=== PATIENT | female | born 1955 | race American Indian/Alaskan Native ===

== ENCOUNTER 2016-10-04 16:57 | Emergency (ER) | payer OTHER ==
[2016-10-04 17:02] VITALS: RESP 20; O2SAT 100
--- NOTE | 2016-10-04 19:10 | C.PDOC ---
History Of Present Illness <LloydosmaniAnat - Last Filed: 10/04/16 19:41> <Alexandra Guo - Last Filed: 10/04/16 21:37> Patient is a 61 y/o female, whose PMHx includes HTN, and pre-diabetes, that presents to the ED for evaluation of near syncopal episode at work today. Pt reports feeling dizzy, and lightheaded. Otherwise, denies any headache, weakness , numbness, chest pain, fever, or any other associated symptoms at this time. (Anat Hui) History Per: Patient History/Exam Limitations: no limitations Onset/Duration Of Symptoms: Hrs Current Symptoms Are (Timing): Still Present Severity: None Pain Scale Rating Of: 0 Recent travel outside of the [place]: No Additional History Per: Patient <EzAnat - Last Filed: 10/04/16 19:41> <Alexandra Guo - Last Filed: 10/04/16 21:37> Time Seen by Provider: 10/04/16 17:55 Chief Complaint (Nursing): Dizziness/Lightheaded Past Medical History Reviewed: Historical Data, Nursing Documentation, Vital Signs - Medical History PMH: Asthma, HTN, Hypercholesterolemia, Pulmonary Embolism, Sleep Apnea Denies: Chronic Kidney Disease Family History: States: Unknown Family Hx - Social History Hx Alcohol Use: No Hx Substance Use: No - Immunization History Hx Tetanus Toxoid Vaccination: No Hx Influenza Vaccination: No Hx Pneumococcal Vaccination: No <EzAnat - Last Filed: 10/04/16 19:41> Review Of Systems Except As Marked, All Systems Reviewed And Found Negative. Constitutional: Negative for: Fever, Chills Cardiovascular: Positive for: Light Headedness. Negative for: Chest Pain, Palpitations Respiratory: Negative for: Shortness of Breath Gastrointestinal: Negative for: Nausea, Vomiting Neurological: Positive for: Dizziness. Negative for: Weakness, Numbness, Headache <Anat Hui - Last Filed: 10/04/16 19:41> Physical Exam - Physical Exam Appears: Non-toxic, No Acute Distress, Other (morbidly obese) Skin: Normal Color, Warm, Dry Head: Atraumatic, Normacephalic Eye(s): bilateral: Normal Inspection, EOMI Neck: Normal ROM, Supple Chest: Symmetrical, No Tenderness Cardiovascular: Rhythm Regular, No Murmur Respiratory: Normal Breath Sounds, No Rales, No Rhonchi, No Wheezing Gastrointestinal/Abdominal: Soft, No Tenderness Extremity: Normal ROM, No Deformity Neurological/Psych: Oriented x3, Normal Speech, Normal Cognition <Anat Hui - Last Filed: 10/04/16 19:41> ED Course And Treatment - Laboratory Results Result Diagrams: 10/04/16 19:12 10/04/16 19:12 ECG: Interpreted By Me ECG Interpretation: No Acute Changes Rate From EC O2 Sat by Pulse Oximetry: 100 (on RA) Pulse Ox Interpretation: Normal Progress Note: Labs, CXR, EKG, head CT ordered and reviewed. Case was signed out to . <Anat Hui - Last Filed: 10/04/16 19:41> - Laboratory Results Result Diagrams: 10/04/16 19:12 10/04/16 19:12 <Alexandra Guo - Last Filed: 10/04/16 21:37> Disposition - Disposition Disposition Time: 19:38 <Anat Hui - Last Filed: 10/04/16 19:41> Counseled Patient/Family Regarding: Studies Performed, Diagnosis, Need For Followup - Disposition Disposition Time: 21:35 <Alexandra Guo - Last Filed: 10/04/16 21:37> - Disposition Disposition: HOME/ ROUTINE Condition: GOOD Additional Instructions: Follow up with your doctor. Any other concerns, return to the Emergency Department. Instructions: Dizziness (ED) Forms: General Discharge Instructions, Work Excuse - Clinical Impression Clinical Impression: Dizziness Physician Patient Turnover Patient Signed Over To: Alexandra Guo Handoff Comments: Labs and CT head are pending <Anat Hui - Last Filed: 10/04/16 19:41> Addendum <Anat Hui - Last Filed: 10/04/16 19:41> <Alexandra Guo - Last Filed: 10/04/16 21:37> Addendum: 10/04/16 21:32 61 y/o female endorsed to me by JAMAAL Hui and Dr. Saleh at the end of their shift. Patient states she was at work and was feeling " funny in the head". No LOC, no chest pain. Patient awake, alert, tolerating PO, states she feels well now. Obese Chest clear Abdomen soft CT head was done, normal CT Labs unremarcable. Patient with leukocytes in the urine, but no urinary complaints. Patient will be discharged with her results to follow up with PMD. (Alexandra Guo)
[2016-10-04 19:21] LABS: BASO # 0.1 K/uL (0.0-0.2); BASO % 1.2 % (0.0-2.0); EOS # 0.3 K/uL (0.0-0.7); EOS % 6.1 % (0.0-4.0); HEMOGLOBIN 12.1 g/dL (11.0-16.0); LYMPH # 1.9 K/uL (1.0-4.3); LYMPH % 39.2 % (20.0-40.0); MEAN CELL VOLUME 87.8 fL (81.0-99.0); MEAN CORPUSCULAR HGB CONC 31.9 g/dL (33.0-37.0); MEAN PLATELET VOLUME 10.2 fL (7.2-11.7); MONO # 0.4 K/uL (0.0-0.8); MONO % 8.6 % (0.0-10.0); NEUT # 2.2 K/uL (1.8-7.0); NEUT % 44.9 % (50.0-75.0); NRBC % 0.1 % (0.0-2.0); RBC 4.32 Mil/uL (3.80-5.20); RED CELL DISTRIBUTION WIDTH 15.2 % (11.5-14.5); WHITE BLOOD COUNT 4.9 K/uL (4.8-10.8)
[2016-10-04 19:30] LABS: INR 1.2; PROTHROMBIN TIME 13.3 SECONDS (9.7-12.2)
[2016-10-04 19:31] LABS: ALBUMIN 4.5 g/dL (3.5-5.0)
[2016-10-04 19:32] LABS: SQUAMOUS EPITHIAL 18 /hpf (0-5); URINE BACTERIA OCC (<OCC); URINE BILIRUBIN NEGATIVE (NEGATIVE); URINE BLOOD NEGATIVE (NEGATIVE); URINE CLARITY Hazy (Clear); URINE COLOR Yellow (YELLOW); URINE GLUCOSE (UA) NORMAL (Normal); URINE LEUKOCYTE ESTERASE 2+ Leu/uL (Negative); URINE NITRATE NEGATIVE (NEGATIVE); URINE PROTEIN NEGATIVE (NEGATIVE); URINE UROBILINOGEN NORMAL mg/dL (0.2-1.0)
[2016-10-04 19:34] LABS: GFR AFRICAN-AMERICAN > 60; GFR NON-AFRICAN AMERICAN > 60
[2016-10-04 19:35] LABS: ALB/GLOB RATIO 1.1 (1.0-2.1); ALT/SGPT 29 U/L (9-52); AST/SGOT 46 U/L (14-36); BLOOD UREA NITROGEN 20 mg/dL (7-17); CALCIUM 10.4 mg/dl (8.6-10.4)
--- NOTE | 2016-10-04 19:36 | C.PDOC ---
Time Seen by Provider: 10/04/16 17:55 Chief Complaint (Nursing): Dizziness/Lightheaded Past Medical History Vital Signs: Last Vital Signs Temp 97.3 F L 10/04/16 17:01 Pulse 80 10/04/16 17:01 Resp 20 10/04/16 17:01 BP 149/77 10/04/16 17:01 Pulse Ox 100 10/04/16 17:01 - Medical History PMH: Asthma, HTN, Hypercholesterolemia, Pulmonary Embolism, Sleep Apnea Denies: Chronic Kidney Disease Family History: States: Unknown Family Hx - Social History Hx Alcohol Use: No Hx Substance Use: No - Immunization History Hx Tetanus Toxoid Vaccination: No Hx Influenza Vaccination: No Hx Pneumococcal Vaccination: No ED Course And Treatment O2 Sat by Pulse Oximetry: 100 Progress Note: Case was signed out to at 7:35 pm. Disposition - Disposition Disposition Time: 19:38 Condition: FAIR - Clinical Impression Clinical Impression: Dizziness Physician Patient Turnover Patient Signed Over To: Alexandra Guo Handoff Comments: labs and CT head are pending
[2016-10-04 21:50] VITALS: BP 122/83; PULSE 60; TEMP 97.6
--- NOTE | 2016-10-05 08:06 | CT ---
PROCEDURE: CT HEAD WITHOUT CONTRAST. HISTORY: Dizziness COMPARISON: None available. TECHNIQUE: Axial computed tomography images were obtained through the head/brain without intravenous contrast. Radiation dose: Total exam DLP = 942 mGy-cm. This CT exam was performed using one or more of the following dose reduction techniques: Automated exposure control, adjustment of the mA and/or kV according to patient size, and/or use of iterative reconstruction technique. FINDINGS: HEMORRHAGE: No intracranial hemorrhage. BRAIN: No mass effect or edema. No atrophy or chronic microvascular ischemic changes. VENTRICLES: Unremarkable. No hydrocephalus. CALVARIUM: Unremarkable. PARANASAL SINUSES: Unremarkable as visualized. No significant inflammatory changes. MASTOID AIR CELLS: Unremarkable as visualized. No inflammatory changes. OTHER FINDINGS: Small bony exostosis emanating from the right frontal cranium. IMPRESSION: No acute intracranial abnormality. If focal neurologic deficit persists, consider MRI. These findings were preliminarily reported at 8:33 p.m. on 10/04/[address] Jason Peck from [facility].
--- NOTE | 2016-10-05 09:02 | RAD ---
PROCEDURE: CHEST RADIOGRAPH, 1 VIEW HISTORY: dizzy COMPARISON: 02/14/2015. FINDINGS: LUNGS: Clear. PLEURA: No pneumothorax or pleural fluid seen. CARDIOVASCULAR: No radiographic findings to suggest acute or significant cardiovascular disease. OSSEOUS STRUCTURES: No significant abnormalities. VISUALIZED UPPER ABDOMEN: Normal. OTHER FINDINGS: None. IMPRESSION: No active disease. No acute/significant interval changes.
--- NOTE | 2016-10-05 17:05 | CARD ---
APPROVED REPORT EKG Measurement Heart [id number] <Conclusion> Normal sinus rhythm Normal ECG
== END 2016-10-04 21:50 | disposition home or self-care (01) ==
LOC: C.ER 16:57
DX: R42 Dizziness and giddiness (principal)

== ENCOUNTER 2016-11-01 07:07 | Emergency (ER) | payer OTHER ==
[2016-11-01] MEDS ORDERED: Sodium Chloride 0.9% 1,000 ML IV ONE (07:31)
[2016-11-01 07:58] LABS: BASO # 0.1 K/uL (0.0-0.2); BASO % 1.4 % (0.0-2.0); EOS # 0.3 K/uL (0.0-0.7); HEMOGLOBIN 11.9 g/dL (11.0-16.0); LYMPH % 27.3 % (20.0-40.0); MEAN CELL VOLUME 87.4 fL (81.0-99.0); MEAN CORPUSCULAR HEMOGLOBIN 28.6 pg (27.0-31.0); MEAN CORPUSCULAR HGB CONC 32.7 g/dL (33.0-37.0); MEAN PLATELET VOLUME 10.2 fL (7.2-11.7); MONO # 0.3 K/uL (0.0-0.8); MONO % 9.5 % (0.0-10.0); NEUT % 53.8 % (50.0-75.0); NRBC % 0.1 % (0.0-2.0); RBC 4.15 Mil/uL (3.80-5.20); RED CELL DISTRIBUTION WIDTH 14.9 % (11.5-14.5); WHITE BLOOD COUNT 3.7 K/uL (4.8-10.8)
[2016-11-01] MEDS ORDERED: Sodium Chloride 0.9% 1,000 ML ONE (08:06)
[2016-11-01 08:16] LABS: ALB/GLOB RATIO 1.4 (1.0-2.1); ALBUMIN 4.3 g/dL (3.5-5.0); ALT/SGPT 29 U/L (9-52); AST/SGOT 34 U/L (14-36); BLOOD UREA NITROGEN 24 mg/dL (7-17); CALCIUM 9.9 mg/dl (8.6-10.4); GFR AFRICAN-AMERICAN > 60; GFR NON-AFRICAN AMERICAN > 60; LIPASE 52 U/L (23-300)
[2016-11-01 08:23] LABS: SQUAMOUS EPITHIAL 5 /hpf (0-5); URINE BACTERIA OCC (<OCC); URINE BILIRUBIN NEGATIVE (NEGATIVE); URINE BLOOD NEGATIVE (NEGATIVE); URINE CLARITY Hazy (Clear); URINE COLOR Yellow (YELLOW); URINE GLUCOSE (UA) NORMAL (Normal); URINE HYALINE CAST 0-2 /lpf (0-2); URINE LEUKOCYTE ESTERASE TRACE Leu/uL (Negative); URINE NITRATE NEGATIVE (NEGATIVE); URINE PROTEIN NEGATIVE (NEGATIVE); URINE UROBILINOGEN NORMAL mg/dL (0.2-1.0)
[2016-11-01] MEDS ORDERED: Iodixanol 320 MG/ML 100 ML BOTTLE IV ONE (09:03)
--- NOTE | 2016-11-01 09:50 | C.PDOC ---
History Of Present Illness 61 y/o female presents to the ED for evaluation of right sided back pain upon waking up this morning. Notes that pain is worse with movement. States that pain radiates to the right side of abdomen. Reports having history of similar episodes in the past. Otherwise, denies any trauma, injury, change in sensation , n/v/d, urinary symptoms, incontinence, or fever. Time Seen by Provider: 11/01/16 07:22 Chief Complaint (Nursing): Back Pain History Per: Patient History/Exam Limitations: no limitations Onset/Duration Of Symptoms: Hrs Current Symptoms Are (Timing): Still Present Quality Of Discomfort: "Pain" Previous Symptoms: None. denies: Prior Injury Associated Symptoms: None. denies: Incontinence, New Weakness, New Numbness Exacerbating Factor(s): Movement Recent travel outside of the [place]: No Additional History Per: Patient Past Medical History Reviewed: Historical Data, Nursing Documentation, Vital Signs Vital Signs: Last Vital Signs Temp 98.7 F 11/01/16 11:57 Pulse 78 11/01/16 11:57 Resp 19 11/01/16 11:57 BP 130/83 11/01/16 11:57 Pulse Ox 98 11/01/16 17:00 - Medical History PMH: Asthma, HTN, Hypercholesterolemia, Pulmonary Embolism, Sleep Apnea Denies: Chronic Kidney Disease Family History: States: Unknown Family Hx - Social History Hx Alcohol Use: No Hx Substance Use: No - Immunization History Hx Tetanus Toxoid Vaccination: No Hx Influenza Vaccination: No Hx Pneumococcal Vaccination: No Review Of Systems Except As Marked, All Systems Reviewed And Found Negative. Constitutional: Negative for: Fever, Chills Cardiovascular: Negative for: Chest Pain, Palpitations Respiratory: Negative for: Shortness of Breath Gastrointestinal: Negative for: Nausea, Vomiting, Diarrhea Genitourinary: Negative for: Dysuria, Frequency, Incontinence, Hematuria Musculoskeletal: Positive for: Back Pain Skin: Negative for: Rash, Bruising Neurological: Negative for: Weakness, Numbness Physical Exam - Physical Exam Appears: Non-toxic, No Acute Distress, Other (morbidly obese) Skin: Normal Color, Warm, Dry Head: Atraumatic, Normacephalic Eye(s): bilateral: Normal Inspection, EOMI Nose: Normal Oral Mucosa: Moist Neck: Normal ROM, Supple Chest: Symmetrical Cardiovascular: Rhythm Regular, No Murmur Respiratory: Normal Breath Sounds, No Rales, No Rhonchi, No Wheezing Gastrointestinal/Abdominal: Soft, Tenderness (RLQ), No Distention, No Guarding, No Rebound Back: No CVA Tenderness, No Vertebral Tenderness, Paraspinal Tenderness (right lumbar) Extremity: Normal ROM, No Tenderness Neurological/Psych: Oriented x3, Normal Speech, Normal Motor, Normal Sensation Gait: Steady ED Course And Treatment - Laboratory Results Result Diagrams: 11/01/16 07:54 11/01/16 07:54 O2 Sat by Pulse Oximetry: 98 (RA) Pulse Ox Interpretation: Normal - CT Scan/US Abd & pelvis CT Other Rad Studies (CT/US): Read By Radiologist, Radiology Report Reviewed CT/US Interpretation: FINDINGS: Examination limited by habitus. LOWER THORAX: No visible consolidation, pleural effusion, or pneumothorax. LIVER: Hypoattenuation of the liver compatible with hepatic steatosis. GALLBLADDER AND BILE DUCTS: Unremarkable. PANCREAS: Unremarkable. SPLEEN: Unremarkable. ADRENALS: Unremarkable. KIDNEYS AND URETERS: The kidneys enhance symmetrically. No hydronephrosis or obstructing calculus identified. VASCULATURE: IVC filter. No aortic aneurysm. BOWEL: Stomach is nondistended. Lack of oral contrast limits evaluation for bowel pathology. Bowel loops appear within normal limits of caliber without evidence of obstruction. APPENDIX: The appendix appears within normal limits of caliber. No secondary signs of acute appendicitis. PERITONEUM: No significant free fluid. No definite free air. LYMPH NODES: No bulky adenopathy identified. BLADDER: Under distended urinary bladder limits evaluation. REPRODUCTIVE: Uterus is present with multiple probable calcified fibroids. BONES: Degenerative changes. OTHER FINDINGS: 3.5 cm fat containing umbilical hernia. IMPRESSION: Hepatic steatosis. Evidence of fibroid uterus. IVC filter. 3.5 cm fat containing umbilical hernia. Progress Note: Blood work, urinalysis, abd & pelvis CT ordered and reviewed. Patient was given Toradol, and IV fluids. On reassessment, patient is resting comfortably, with improvement of back pain. Patient remains afebrile, with no bony tenderness, extremity numbness or weakness, or abdominal pain. Patient is ambulatory in the emergency department with no signs of discomfort. Patient was advised to follow up with physician/clinic in 1-2 days. Disposition - Disposition Disposition: HOME/ ROUTINE Disposition Time: 11:41 Condition: IMPROVED Additional Instructions: Follow up with your primary medical doctor or clinic in 2-5 days for further evaluation. Take medications as prescribed. Return to the emergency department at any time if symptoms persist or worsen. Prescriptions: Cyclobenzaprine [Cyclobenzaprine HCl] 10 mg PO TID #20 tab Naproxen [Naprosyn] 1 tab PO BID PRN #20 tab PRN Reason: Pain Instructions: Acute Low Back Pain (ED) Forms: [email or web address] (Guyanese) - Clinical Impression Clinical Impression: Low back pain - PA / [employer] / Resident Statement MD/DO has reviewed & agrees with the documentation as recorded. - Scribe Statement The provider has reviewed the documentation as recorded by the Scribe Macie Barrera All medical record entries made by the Triny were at my direction and personally dictated by me. I have reviewed the chart and agree that the record accurately reflects my personal performance of the history, physical exam, medical decision making, and the department course for this patient. I have also personally directed, reviewed, and agree with the discharge instructions and disposition.
[2016-11-01 09:58] VITALS: RESP 19
--- NOTE | 2016-11-01 10:46 | CT ---
PROCEDURE: CT Abdomen and Pelvis with contrast HISTORY: right sided pain COMPARISON: CT abdomen and pelvis with contrast performed 04/12/11 TECHNIQUE: Contrast dose: 100 mL Visipaque Radiation dose: Total exam DLP = 1108.61 mGy-cm. This CT exam was performed using one or more of the following dose reduction techniques: Automated exposure control, adjustment of the mA and/or kV according to patient size, and/or use of iterative reconstruction technique. FINDINGS: Examination limited by habitus. LOWER THORAX: No visible consolidation, pleural effusion, or pneumothorax. LIVER: Hypoattenuation of the liver compatible with hepatic steatosis. GALLBLADDER AND BILE DUCTS: Unremarkable. PANCREAS: Unremarkable. SPLEEN: Unremarkable. ADRENALS: Unremarkable. KIDNEYS AND URETERS: The kidneys enhance symmetrically. No hydronephrosis or obstructing calculus identified. VASCULATURE: IVC filter. No aortic aneurysm. BOWEL: Stomach is nondistended. Lack of oral contrast limits evaluation for bowel pathology. Bowel loops appear within normal limits of caliber without evidence of obstruction. APPENDIX: The appendix appears within normal limits of caliber. No secondary signs of acute appendicitis. PERITONEUM: No significant free fluid. No definite free air. LYMPH NODES: No bulky adenopathy identified. BLADDER: Under distended urinary bladder limits evaluation. REPRODUCTIVE: Uterus is present with multiple probable calcified fibroids. BONES: Degenerative changes. OTHER FINDINGS: 3.5 cm fat containing umbilical hernia. IMPRESSION: Hepatic steatosis. Evidence of fibroid uterus. IVC filter. 3.5 cm fat containing umbilical hernia.
[2016-11-01] MEDS ORDERED: Oxycodone/Acetaminophen 5/325 mg Tab PO STA (11:01)
[2016-11-01] MEDS ORDERED: Oxycodone/Acetaminophen 5/325 mg Tab ONE (11:11)
[2016-11-01 12:08] VITALS: BP 130/83; PULSE 78; TEMP 98.7
[2016-11-01 17:00] VITALS: O2SAT 98
== END 2016-11-01 12:35 | disposition home or self-care (01) ==
LOC: C.ER 07:07
DX: M54.5 Low back pain (principal)
CPT/HCPCS: 74177; 80053; 81001; 83690; 85025; 96361; 96374; 99285; J1885; J7040; Q9967